=== PATIENT | female | born 1970 | race Caucasian/White ===

== ENCOUNTER 2019-12-01 00:50 | Inpatient (IN) | payer MEDICARE, OTHER ==
[~2019-12-01] VITALS: Ht 160 cm; Wt 103.0 kg
[~2019-12-01 00:50] MED LIST: ACETAMINOPHEN 325 MG TABLET PO PRN
--- NOTE | 2019-12-01 01:00 | NUR ---
PT BIBPA SENT BY DR FUNK FROM [facility]. PT COVID (+) PER FACILITY REPORT. TEMP UPON ARRIVAL AT 98.1. PT AAOX4, VSS, RESPIRATIONS EVEN AND UNLABORED ON RA W/ NAD NOTED. PT CONNECTED TO THE MONITOR AND POX
--- NOTE | 2019-12-01 01:15 | NUR ---
XRAY AT BEDSIDE FOR XRAY
--- NOTE | 2019-12-01 01:22 | NUR ---
COVID SWAB SAMPLE COLLECTED AND SENT TO THE LAB.
[2019-12-01 01:28] LABS: BASOPHILS # (AUTO) 0.1 /CMM (0.0-0.2); BASOPHILS % (AUTO) 1.6 % (0.0-2.0); EOSINOPHILS % (AUTO) 4.3 % (0.0-6.0); HEMATOCRIT 36 % (33-45); HEMOGLOBIN 11.7 g/dL (11.5-14.8); LYMPHOCYTES # (AUTO) 2.1 /CMM (0.8-4.8); LYMPHOCYTES % (AUTO) 25.5 % (20.0-44.0); MEAN CORPUSCULAR HGB CONC 33 g/dl (31.0-36.0); MEAN CORPUSCULAR VOLUME 90 fL (82-100); MONOCYTES # (AUTO) 0.8 /CMM (0.1-1.30); MONOCYTES % (AUTO) 9.4 % (2.0-12.0); NEUTROPHILS # (AUTO) 4.8 /CMM (1.8-8.9); NEUTROPHILS % (AUTO) 59.2 % (43.0-81.0); PLATELET COUNT (AUTO) 304 /CMM (150-450); RED BLOOD CELL COUNT(AUTO) 3.96 MIL/uL (4.0-5.2); WHITE BLOOD COUNT (AUTO) 8.2 K/uL (4.3-11.0)
[2019-12-01 01:41] LABS: C-REACTIVE PROTEIN 0.4 mg/dL (0.0-0.9)
[2019-12-01 01:42] LABS: ALBUMIN 3.4 g/dL (3.4-5.0); BILIRUBIN,TOTAL 0.1 mg/dL (0.2-1.0); CALCIUM, SERUM 9.6 mg/dL (8.5-10.1); POTASSIUM 3.7 mmol/L (3.5-5.1); TOTAL PROTEIN, SERUM 7.6 g/dL (6.4-8.2)
[2019-12-01] MEDS ORDERED: ALBUTEROL SULFATE 8 GM HFA.AER.AD IH PRN (02:00)
[2019-12-01] MEDS ORDERED: DIVA500T4 PO (02:15)
[2019-12-01] MEDS ORDERED: QUET400T PO (02:15)
[2019-12-01] MEDS ORDERED: GLIP10TA11 PO (02:15)
[2019-12-01] MEDS ORDERED: LITH600C PO (02:15)
[2019-12-01] MEDS ORDERED: PIOG30TA10 PO (02:15)
[2019-12-01] MEDS ORDERED: METF-441 PO (02:15)
[2019-12-01] MEDS ORDERED: PALI234D IM (02:15)
[2019-12-01] MEDS ORDERED: CLON1TAB12 PO (02:15)
--- NOTE | 2019-12-01 02:40 | NUR ---
FIRST ASSIST NOTES Received patient from ER via rney accompanied by 2 ER staff. Admitted to Tele 206- due to COVID19 under the service of JUVENILE DETENTION OFFICER Leana Gurrola. Transferred to bed comfortably. Admission routine done. Initial skin assessment done: noted blanchable redness on sacrum - educated patient on the importance of turning and repositioning; pt repositions self independently, verbalized understanding; BLE swelling +2 with mild redness, temperature equal to other parts of the body, per patient she has DVT. Admission orders noted and carried out. Kept pt on bed clean, dry and comfortable. Kept BLE elevated with pillow. On RA, SpO2 100%, no SOB/respiratory distress noted. Afebrile. NSR on monitor. On fall and aspiration precautions. Will continue to monitor accordingly.
[2019-12-01 02:57] VITALS: BP 114/80
[2019-12-01] MEDS ORDERED: ONDANSETRON HCL/PF 4 MG/2 ML VIAL IVP PRN (03:00)
[2019-12-01] MEDS ORDERED: ACETAMINOPHEN 650 MG/SUPP.RECT RC PRN (03:00)
[2019-12-01 03:06] VITALS: BP 114/80
--- NOTE | 2019-12-01 06:13 | NUR ---
RN NOTES Pt asleep on bed. On RA, no respiratory distress noted. Afebrile since admitted to the unit. No new complaints made. All nursing needs attended. No due meds at this time. On tele monitor with NSR noted. Kept on bed clean, dry and comfortable. On fall and aspiration precautions. Endorsed. Addendum: 12/01/19 at 0709 by TAYLOR VEGAS RN RN CLOSING NOTES Pt noted NSR with 1st degree AV block.
--- NOTE | 2019-12-01 07:30 | NUR ---
SUPERVISOR DENTAL LABORATORY NOTES RECEIVED PATIENT IN BED ALERT AND AWAKE ORIENTED X3 WATCHING TV. HOB ELEVATED. NO COUGH, SOB NOTED. ON ROOM AIR WITH SPO2 OF 100%. AMBULATORY WITH STEADY GAIT. ON TELE MONITORING SR: 84. RIGHT AC # 18 SL INTACT AND PATENT. BED IN LOWEST POSITION ,LOCKED. BED ALARM ON. CALL LIGHT WITHIN REACH.
[2019-12-01 08:00] VITALS: BP 127/77
[2019-12-01] MEDS ORDERED: ACET-868 PO (09:06)
[2019-12-01] MEDS ORDERED: BISA10SU11 RC (09:06)
[2019-12-01] MEDS ORDERED: NA P133E RC (09:06)
[2019-12-01] MEDS ORDERED: MAGN400O6 PO (09:06)
[2019-12-01] MEDS ORDERED: BENZ1TAB7 PO (09:06)
[2019-12-01] MEDS: DEXAMETHASONE SOD PHOSPHATE 10 MG/ML VIAL IV SCH (09:47)
[2019-12-01] MEDS: ENOXAPARIN SODIUM 40 MG/0.4 ML DISP.SYRIN SQ SCH (09:51)
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
--- NOTE | 2019-12-01 11:15 | NUR ---
CITRIX ARCHITECT NOTES UPON CHECKING ON PATIENT PRIOR TO ENTERING THE ROOM, NOTED PATIENT WITH MOOD CHANGE, STATING THAT WE HAD GIVEN HER THE DISEASE. WHEN ASKED ABOUT THE DISEASE, PATIENT UNABLE TO ANSWER, THEN TURNED HER BACK AND WENT TO SLEEP.
[2019-12-01 12:00] VITALS: BP 137/86
--- NOTE | 2019-12-01 15:00 | NUR ---
INSEAM TRIMMING MACHINE OPERATOR NOTES OBSERVED PATIENT PACING IN ROOM, THEN PATIENT STOPPED IN FRONT OF THE BED AND STATED THAT THE BLINKING LIGHT OF THE BED IS SENDING HER MESSAGES AND TALKING TO PATIENT BUT PATIENT DOES NOT WANT TO TALK TO THE BED. ATTEMPTED TO REDIRECT PATIENT AND INFORMED PATIENT THAT THE BED IS NOT TALKING AND IT'S JUST A BLINKING LIGHT WITH NO MESSAGES. PATIENT CONTINUED TO TALK TO THE BED.
--- NOTE | 2019-12-01 15:45 | NUR ---
AIRCRAFT ENGINE SPECIALIST NOTES PATIENT SITTING IN CHAIR, ASKED PATIENT IF SHE NEEDED ANYTHING, PATIENT REPLIED NO WITH A SMILE AND STATED SHE IS DOING FINE.
[2019-12-01 16:00] VITALS: BP 136/84
--- NOTE | 2019-12-01 18:45 | NUR ---
VISCERA WASHER NOTES PATIENT SITTING AT EDGE OF BED WATCHING TV. DENIES ANY C/O PAIN NOR DISCOMFORT. NO S/S OF RESPIRATORY DISTRESS. RIGHT AC # 18 SL INTACT AND PATENT. BED IN LOWEST POSITION ,LOCKED. BED ALARM ON. CALL LIGHT WITHIN REACH. IN NO APPARENT DISTRESS.
--- NOTE | 2019-12-01 23:00 | NUR ---
ELECTRONIC GLUER NOTES PATIENT STILL AWAKE WATCHING TV.
[2019-12-01 23:26] VITALS: BP 125/77
[2019-12-02 01:17] VITALS: BP 151/84
[2019-12-02 05:16] VITALS: BP 139/86
--- NOTE | 2019-12-02 07:27 | NUR ---
PRICING LEAD NOTES PATIENT RESTING COMFORTABLY IN BED. HOB ELEVATED. NO S/S OF RESPIRATORY DISTRESS. DENIES ANY C/O PAIN NOR DISCOMFORT. RIGHT AC # 18 SL INTACT AND PATENT. BED IN LOWEST POSITION, LOCKED. BED ALARM ON. CALL LIGHT WITHIN REACH. IN NO APPARENT DISTRESS.
--- NOTE | 2019-12-02 07:40 | NUR ---
RN NOTES RECEIVED PATIENT RESTING COMFORTABLY IN BED. HOB ELEVATED. NO S/S OF DISTRESS NOTED AT THIS TIME.RIGHT AC # 18 SL INTACT AND PATENT. SAFETY MEASURES IN PLACE, BED IN LOWEST POSITION, LOCKED. BED ALARM ON. CALL LIGHT WITHIN REACH. WILL CONTINUE TO MONITOR.
[2019-12-02 08:07] VITALS: BP 139/85
[2019-12-02 08:16] LABS: BASOPHILS % (AUTO) 0.2 % (0.0-2.0); EOSINOPHILS % (AUTO) 0.8 % (0.0-6.0); HEMATOCRIT 37 % (33-45); HEMOGLOBIN 11.9 g/dL (11.5-14.8); LYMPHOCYTES # (AUTO) 2.4 /CMM (0.8-4.8); LYMPHOCYTES % (AUTO) 26.1 % (20.0-44.0); MEAN CORPUSCULAR HGB CONC 33 g/dl (31.0-36.0); MEAN CORPUSCULAR VOLUME 89 fL (82-100); MONOCYTES # (AUTO) 0.8 /CMM (0.1-1.30); MONOCYTES % (AUTO) 9.1 % (2.0-12.0); NEUTROPHILS # (AUTO) 5.8 /CMM (1.8-8.9); NEUTROPHILS % (AUTO) 63.8 % (43.0-81.0); PLATELET COUNT (AUTO) 291 /CMM (150-450); RED BLOOD CELL COUNT(AUTO) 4.09 MIL/uL (4.0-5.2); WHITE BLOOD COUNT (AUTO) 9.2 K/uL (4.3-11.0)
[2019-12-02] MEDS: DEXAMETHASONE SOD PHOSPHATE 10 MG/ML VIAL IV SCH (08:18)
[2019-12-02] MEDS: ENOXAPARIN SODIUM 40 MG/0.4 ML DISP.SYRIN SQ SCH (08:19)
[2019-12-02 08:43] LABS: ALBUMIN 3.6 g/dL (3.4-5.0); BILIRUBIN,TOTAL 0.1 mg/dL (0.2-1.0); CALCIUM, SERUM 9.7 mg/dL (8.5-10.1); CREATININE 0.9 mg/dL (0.6-1.3); POTASSIUM 3.9 mmol/L (3.5-5.1); TOTAL PROTEIN, SERUM 8.3 g/dL (6.4-8.2)
[2019-12-02 12:33] VITALS: BP 129/74
[2019-12-02] MEDS ORDERED: ACETAMINOPHEN 325 MG TABLET PO PRN (14:00)
[2019-12-02] MEDS ORDERED: MAGNESIUM HYDROXIDE 30 ML UDC PO PRN (14:00)
[2019-12-02] MEDS ORDERED: NA PHOS,M-B/NA PHOS,DI-BA 1 EA ENEMA RC PRN (14:00)
[2019-12-02] MEDS ORDERED: BISACODYL SUPP (10 MG) 10 MG/SUPP.RECT SUPP.RECT RC PRN (14:00)
[2019-12-02 16:13] VITALS: BP 151/88
[2019-12-02] MEDS: METFORMIN 850 MG TABLET PO SCH ×2 (16:17→17:00)
[2019-12-02] MEDS: clonazePAM 1 MG TABLET PO SCH ×2 (16:17→17:00)
[2019-12-02] MEDS: BENZTROPINE MESYLATE (1 MG) 1 MG TABLET PO SCH ×2 (16:17→17:00)
[2019-12-02] MEDS: QUETIAPINE FUMARATE 100 MG TABLET PO SCH ×2 (16:17→17:00)
[2019-12-02] MEDS: LITHIUM CARBONATE (300 MG CAP) 300 MG CAPSULE PO SCH (17:00)
--- NOTE | 2019-12-02 17:50 | NUR ---
RN NOTES PATIENT CHANGED HER MIND END SPIT OUT ALL MEDICATION, PER PATIENT" I'M OKAY NOW, I DON'T NEED MEDICATION AND I WANT TO GO BACK TO THE FACILITY" EXPLAINED THE BENEFITS AND RISKS OF MEDICATION 3X. PATIENT STILL REFUSED AND STARTED SHOUTING. WILL CONTINUE TO MONITOR.
--- NOTE | 2019-12-02 18:28 | NUR ---
RN NOTES PATIENT RESTING COMFORTABLY IN BED. HOB ELEVATED. NO S/S OF DISTRESS NOTED THROUGHOUT THE SHIFT.RIGHT AC # 18 SL INTACT AND PATENT. SAFETY MEASURES IN PLACE, BED IN LOWEST POSITION, LOCKED. BED ALARM ON. CALL LIGHT WITHIN REACH. WILL ENDORSE TO ENGINEERING DESIGN MANAGER NURSE FOR [facility].
--- NOTE | 2019-12-02 19:00 | NUR ---
RN opening notes Received Pt from morning nurse. Pt is resting in bed comfortable. Pt is alert and orientedX2-3. Respiration is normal. No SOB. No S/S of distress noted. IV sites at RAC# 18 is clean, intact, patent and SL. Tele monitor showed SR Hr at 90 bpm. Isolation precautions is maintained. Safety precautions is maintained. Bed at low position, brakes locked, side rails upX3 and call light is with reach. Will continue to monitor.
[2019-12-02 20:00] VITALS: BP 110/69
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
--- NOTE | 2019-12-02 21:20 | NUR ---
airport shuttle driver notes Pt is resting in bed comfortably and calm. No SOB. No S/S of distress noted. Will continue to monitor.
[2019-12-02] MEDS: DIVALPROEX SODIUM 500 MG TABLET.DR PO SCH (21:39)
--- NOTE | 2019-12-02 21:39 | NUR ---
medical imaging director notes Pt refused depakote 500mg/2 tabs/po. Explained risks and benefits. Pt keep refusing. Will continue to monitor.
[2019-12-03] VITALS (7 sets, daily range): BP systolic 97–165; BP diastolic 61–96
--- NOTE | 2019-12-03 06:39 | NUR ---
RN closing notes Pt is resting in bed comfortably. Pt is alert and orientedX2-3. Respiration is normal. No SOB. No S/S of distress noted. VS is stable. IV sites at RAC# 18 is clean, intact, patent and SL. Tele monitor showed SR Hr at 93 bpm. Isolation precautions is maintained. Kept Pt clean, dry and comfortable. All needs met and attended. Safety precautions is maintained. Bed at low position, brakes locked, side rails upX3 and call light is with reach. Will endorse to morning nurse for [facility].
[2019-12-03 07:18] LABS: BASOPHILS % (AUTO) 0.4 % (0.0-2.0); EOSINOPHILS % (AUTO) 0.6 % (0.0-6.0); HEMATOCRIT 32 % (33-45); HEMOGLOBIN 10.6 g/dL (11.5-14.8); LYMPHOCYTES # (AUTO) 1.8 /CMM (0.8-4.8); LYMPHOCYTES % (AUTO) 27.3 % (20.0-44.0); MEAN CORPUSCULAR HGB CONC 33 g/dl (31.0-36.0); MEAN CORPUSCULAR VOLUME 89 fL (82-100); MONOCYTES # (AUTO) 0.8 /CMM (0.1-1.30); MONOCYTES % (AUTO) 11.8 % (2.0-12.0); NEUTROPHILS # (AUTO) 4.1 /CMM (1.8-8.9); NEUTROPHILS % (AUTO) 59.9 % (43.0-81.0); PLATELET COUNT (AUTO) 235 /CMM (150-450); RED BLOOD CELL COUNT(AUTO) 3.61 MIL/uL (4.0-5.2); WHITE BLOOD COUNT (AUTO) 6.8 K/uL (4.3-11.0)
--- NOTE | 2019-12-03 07:30 | NUR ---
RN OPENING NOTES PATIENT IN BED AOX3. RESTING COMFORTABLY IN BED. HOB ELEVATED. NO CARDIAC OR RESP DISTRESS NOTED. NO SOB NOTED. SATURATING WELL ON ROOMN AIR. IV ACCESS NOTED ON RIGHT AC # 18 SL INTACT AND PATENT. SAFETY MEASURES IN PLACE, BED IN LOWEST POSITION, LOCKED. BED ALARM ON. CALL LIGHT WITHIN REACH. WILL CONT TO MONITOR.
[2019-12-03 07:44] LABS: CALCIUM, SERUM 8.7 mg/dL (8.5-10.1); CREATININE 0.9 mg/dL (0.6-1.3); POTASSIUM 3.6 mmol/L (3.5-5.1)
[2019-12-03] MEDS: BENZTROPINE MESYLATE (1 MG) 1 MG TABLET PO SCH ×2 (08:23→17:00)
[2019-12-03] MEDS: PIOGLITAZONE HCL 15 MG TABLET PO SCH (08:23)
[2019-12-03] MEDS: QUETIAPINE FUMARATE 100 MG TABLET PO SCH ×2 (08:23→17:38)
[2019-12-03] MEDS: clonazePAM 1 MG TABLET PO SCH ×2 (08:23→17:38)
[2019-12-03] MEDS: DEXAMETHASONE SOD PHOSPHATE 10 MG/ML VIAL IV SCH (08:23)
[2019-12-03] MEDS: LITHIUM CARBONATE (300 MG CAP) 300 MG CAPSULE PO SCH ×2 (08:24→17:38)
[2019-12-03] MEDS: METFORMIN 850 MG TABLET PO SCH ×3 (08:24→17:00)
[2019-12-03] MEDS: ENOXAPARIN SODIUM 40 MG/0.4 ML DISP.SYRIN SQ SCH (08:25)
--- NOTE | 2019-12-03 08:51 | NUR ---
REFUSED MEDS PT REFUSED TO TAKE SOME OF HER MORNING MEDS. EXPLAINED RISKS AND BENEFITS OF MEDS AND BEING COMPLIANT WITH MEDICATION REGIMEN BUT STILL REFUSED.
--- NOTE | 2019-12-03 09:13 | NUR ---
report given to sameer monroy for continuity of care
--- NOTE | 2019-12-03 09:30 | NUR ---
manager telecom note all needs attended received patient in bed awake alert , on tele monitor se hr 73, able to feed self rt fa hl intact ,will cont to monitor
--- NOTE | 2019-12-03 10:17 | NUR ---
telephone maintainer note dr olvera at bedside, aware that patinr refused to take Meds, will cont to monitor
--- NOTE | 2019-12-03 12:22 | NUR ---
telex operator ote having lunch able to eat self, refusing to have Glucophage ,explaining importance and action of mediation, still refused ,will cont to encourage to take ,will f\u
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
--- NOTE | 2019-12-03 15:41 | NUR ---
Core Fitter spoke to JAYLEN Bond at [facility] . Per Ronda, patient has been residing at their facility since September 29. Per Ronda, patient is diagnosed with Schizoeffect disorder and bipolar disorder. Per Ronda, patient accuses people around her of stealing personal items and patient likes to invade personal space. Per Ronda, patient is being followed by Dr. Hurley . JAYLEN to provide this information to patient's RN. JAYLEN to remain available for all needs regarding this patient.
--- NOTE | 2019-12-03 18:41 | NUR ---
tle rn note having dinner, all needs attended ,not in distress will,cont to monitor closely
--- NOTE | 2019-12-03 19:45 | NUR ---
RN OPENING NOTES, PATIENT IN BED AOX3, ON ROOM AIR, BREATHING EVEN AND UNLABORED, NO S/S OF ANY SOB/ACUTE DISTRESS OR DISCOMFORT, DENIES PAIN, NSR IN TELE MONITOR WITH HR IN 60S AT THIS TIME, IV ACCESS ON RIGHT AC # 18 SL PATENT AND INTACT, SAFETY MEASURES IN PLACE, BED IN LOWEST POSITION, BED LOCKED AND LOWEST POSITION, CALL LIGHT WITHIN REACH,WILL CONT TO MONITOR CLOSELY.
[2019-12-03] MEDS: DIVALPROEX SODIUM 500 MG TABLET.DR PO SCH (21:54)
[2019-12-04] VITALS: BP 123/86
[2019-12-04 04:00] VITALS: BP 132/89
--- NOTE | 2019-12-04 06:48 | NUR ---
RN CLOSING NOTES, PATIENT SITTING ON THE CHAIR AT THIS TIME, ON ROOM AIR, BREATHING EVEN AND UNLABORED, NO S/S OF ANY SOB/ACUTE DISTRESS OR DISCOMFORT, DENIES PAIN, CONTINUE NSR IN TELE MONITOR, IV ACCESS ON RIGHT AC # 18 SL PATENT AND INTACT, NO SIGNIFICANT CHANGE IN CONDITION THROUGHOUT THE NIGHT, SAFETY MEASURES IN PLACE, BED LOCKED AND LOWEST POSITION, CALL LIGHT WITHIN REACH, WILL CONT TO MONITOR CLOSELY.
[2019-12-04 06:56] LABS: BASOPHILS % (AUTO) 0.3 % (0.0-2.0); EOSINOPHILS % (AUTO) 0.9 % (0.0-6.0); HEMATOCRIT 31 % (33-45); HEMOGLOBIN 10.4 g/dL (11.5-14.8); LYMPHOCYTES # (AUTO) 2.4 /CMM (0.8-4.8); MEAN CORPUSCULAR HGB CONC 33 g/dl (31.0-36.0); MEAN CORPUSCULAR VOLUME 90 fL (82-100); MONOCYTES # (AUTO) 0.6 /CMM (0.1-1.30); MONOCYTES % (AUTO) 11.1 % (2.0-12.0); NEUTROPHILS # (AUTO) 2.5 /CMM (1.8-8.9); NEUTROPHILS % (AUTO) 44.7 % (43.0-81.0); PLATELET COUNT (AUTO) 215 /CMM (150-450); RED BLOOD CELL COUNT(AUTO) 3.49 MIL/uL (4.0-5.2); WHITE BLOOD COUNT (AUTO) 5.7 K/uL (4.3-11.0)
[2019-12-04 07:54] LABS: CALCIUM, SERUM 8.6 mg/dL (8.5-10.1); CREATININE 0.8 mg/dL (0.6-1.3); POTASSIUM 3.4 mmol/L (3.5-5.1)
[2019-12-04 08:00] VITALS: BP_SYST 131; BP_SYST 132; BP_DIAS 86
--- NOTE | 2019-12-04 08:00 | NUR ---
RN RECEIVED PT IN BED AOX1, IV ACCESS NOT PATENT LEAKING REMOVED AND WILL START ANOTHER ONE SAFETY MEASURES TAKEN CALL LIGHT W/ IN REACH WILL CONT TO MONITOR.
[2019-12-04] MEDS: PIOGLITAZONE HCL 15 MG TABLET PO SCH (08:21)
[2019-12-04] MEDS: DEXAMETHASONE SOD PHOSPHATE 10 MG/ML VIAL IV SCH (08:21)
[2019-12-04] MEDS: QUETIAPINE FUMARATE 100 MG TABLET PO SCH (08:21)
[2019-12-04] MEDS: clonazePAM 1 MG TABLET PO SCH (08:22)
[2019-12-04] MEDS: METFORMIN 850 MG TABLET PO SCH ×2 (08:22→12:30)
[2019-12-04] MEDS: BENZTROPINE MESYLATE (1 MG) 1 MG TABLET PO SCH (08:23)
[2019-12-04] MEDS: LITHIUM CARBONATE (300 MG CAP) 300 MG CAPSULE PO SCH (08:24)
[2019-12-04] MEDS: ENOXAPARIN SODIUM 40 MG/0.4 ML DISP.SYRIN SQ SCH (08:30)
[2019-12-04] MEDS ORDERED: POTASSIUM CHLORIDE 20 MEQ TAB.PRT.SR PO ONE (09:30)
[2019-12-04] MEDS ORDERED: DEXA10VI2 IV (09:47)
[2019-12-04 12:00] VITALS: BP 137/80
[2019-12-04 16:00] VITALS: BP 121/80
--- NOTE | 2019-12-04 16:13 | NUR ---
agricultural sales representative pt is being dc to assisted living where she came from report given to NANNY/HOUSEHOLD MANAGER, pt aox4 vs stable no distress noted during recovery pt left at 1605 via ambulance emt, dc instructions given and tought
== END 2019-12-04 16:05 | DRG 178 ==
LOC: ER 00:50 → TELE2 01:59
PROVIDERS: ADMIT Internal Medicine; ATTEND Family Medicine
DX: U07.1 COVID-19 (principal); Z68.41 Body mass index [BMI] 40.0-44.9, adult; I10 Essential (primary) hypertension; E03.9 Hypothyroidism, unspecified; F25.9 Schizoaffective disorder, unspecified; Z79.84 Long term (current) use of oral hypoglycemic drugs; Z79.899 Other long term (current) drug therapy; E66.01 Morbid (severe) obesity due to excess calories; F41.9 Anxiety disorder, unspecified; F32.9 Major depressive disorder, single episode, unspecified; E11.65 Type 2 diabetes mellitus with hyperglycemia; Z88.0 Allergy status to penicillin; I89.0 Lymphedema, not elsewhere classified; E87.6 Hypokalemia
CPT/HCPCS: 36415; 71045-TC; 80048-TC; 80053-TC; 82728-TC; 83605-TC; 83615-TC; 85025-TC; 85385-TC; 86140-TC; 87081-TC; G0378; J1100; J1650; U0003

== ENCOUNTER 2020-07-17 12:35 | Inpatient (IN) | payer MEDICARE, OTHER ==
[~2020-07-17] VITALS: Ht 167.6 cm; Wt 115.7 kg
[2020-07-17] MEDS: BENZTROPINE MESYLATE (1 MG) 1 MG TABLET PO SCH (01:00)
[2020-07-17] MEDS: clonazePAM 1 MG TABLET PO SCH (01:00)
[~2020-07-17 12:35] MED LIST changes: +ACET-868 PO; -ACETAMINOPHEN 325 MG TABLET PO PRN; +BENZ1TAB7 PO; +BISA10SU11 RC; +CLON1TAB12 PO; +DEXA10VI2 IV; +DIVA500T4 PO; +GLIP10TA11 PO; +LITH600C PO; +MAGN400O6 PO; +METF-441 PO; +NA P133E RC; +PALI234D IM; +PIOG30TA10 PO; +QUET400T PO
--- NOTE | 2020-07-17 13:08 | NUR ---
NIKOLAS PA, POSSIBLE SYNCOPE, FOUND PASS OUT IN DINING TABLE. SENT BY MD FUNK FOR FUTHER EVAL. PT AAOX3, VSS. RR EVEN & UNLABORED. DENIES CP, SOB, DIZZINESS, N/V, WEAKNESS AT THIS TIME. PT SEEN & EVAL'D BY DR. BESS. PLACED ON GROCERY BUYER, SR. WILL CONT TO MONITOR.
[2020-07-17 13:10] LABS: BASOPHILS # (AUTO) 0.1 /CMM (0.0-0.2); BASOPHILS % (AUTO) 0.6 % (0.0-2.0); EOSINOPHILS % (AUTO) 2.2 % (0.0-6.0); HEMATOCRIT 35 % (33-45); HEMOGLOBIN 11.7 g/dL (11.5-14.8); LYMPHOCYTES # (AUTO) 2.6 /CMM (0.8-4.8); LYMPHOCYTES % (AUTO) 22.7 % (20.0-44.0); MEAN CORPUSCULAR HGB CONC 33 g/dl (31.0-36.0); MEAN CORPUSCULAR VOLUME 91 fL (82-100); MONOCYTES # (AUTO) 0.6 /CMM (0.1-1.30); MONOCYTES % (AUTO) 4.9 % (2.0-12.0); NEUTROPHILS % (AUTO) 69.6 % (43.0-81.0); PLATELET COUNT (AUTO) 306 /CMM (150-450); RED BLOOD CELL COUNT(AUTO) 3.84 MIL/uL (4.0-5.2); WHITE BLOOD COUNT (AUTO) 11.5 K/uL (4.3-11.0)
[2020-07-17 13:19] LABS: CARBON DIOXIDE 28 mmol/L (21-32); CHLORIDE 105 mmol/L (98-107); GLUCOSE 143 mg/dL (74-106); POTASSIUM 3.8 mmol/L (3.5-5.1); SODIUM SERUM 143 mmol/L (136-145); UREA NITROGEN, BLOOD 9 mg/dL (7-18)
[2020-07-17 13:36] LABS: ALANINE AMINOTRANSFERASE 22 U/L (12-78); ALBUMIN 3.8 g/dL (3.4-5.0); ALKALINE PHOSPHATASE 80 U/L (46-116); ASPARTATE AMINOTRANSFERASE 10 U/L (15-37); BILIRUBIN,TOTAL 0.2 mg/dL (0.2-1.0)
[2020-07-17] MEDS ORDERED: FURO-145 PO (13:49)
--- NOTE | 2020-07-17 15:18 | NUR ---
PT ASLEEP, EASILY AWAKEN BY VERBAL STIMULI. DENIES CP, SOB, DIZZINESS, N/V AT THIS TIME. WILL CONT TO MONITOR.
[2020-07-17] MEDS ORDERED: TEMAZEPAM 15 MG CAPSULE PO PRN (16:30)
[2020-07-17] MEDS ORDERED: MAGNESIUM HYDROXIDE 30 ML UDC PO PRN ×2 (16:30)
[2020-07-17] MEDS ORDERED: PALIPERIDONE 156 MG XX SCH (16:30)
[2020-07-17] MEDS ORDERED: Z GUARD REMEDY 2 OZ OINT TP PRN (16:30)
[2020-07-17] MEDS ORDERED: BISACODYL SUPP (10 MG) 10 MG/SUPP.RECT SUPP.RECT RC PRN (16:30)
[2020-07-17] MEDS ORDERED: MAG HYDROX/AL HYDROX/SIMETH 30 ML UDC PO PRN (16:30)
[2020-07-17] MEDS ORDERED: MORPHINE SULFATE INJ 2 MG/ML DISP.SYRIN IV PRN (16:30)
[2020-07-17] MEDS ORDERED: ONDANSETRON HCL/PF 4 MG/2 ML VIAL IVP PRN (16:30)
[2020-07-17] MEDS ORDERED: NA PHOS,M-B/NA PHOS,DI-BA 1 EA ENEMA RC PRN (16:30)
[2020-07-17] MEDS ORDERED: ACETAMINOPHEN 325 MG TABLET PO PRN (16:30)
[2020-07-17] MEDS ORDERED: IV NS 0.9% 1,000 ML IV PRN (16:30)
[2020-07-17] MEDS ORDERED: HYDROCODONE/APAP 5/325MG TABLET PO PRN (16:30)
--- NOTE | 2020-07-17 17:46 | NUR ---
Patient is resting comfortably in bed with eyes closed. Easily aroused. VSS
--- NOTE | 2020-07-17 20:31 | NUR ---
PT AAOX4, VSS. RR EVEN & UNLABORED. DENIES CP, SOB, DIZZINESS, N/V AT THIS TIME. PT EATING MEAL, JESUS WELL. NAD NOTED AT THIS TIME. WILL CONT TO MONITOR.
--- NOTE | 2020-07-17 22:07 | NUR ---
PT STABLE, RR EVEN & UNLABORED. ON TELE, SR. NAD NOTED AT THIS TIME. WILL CONT TO MONITOR
--- NOTE | 2020-07-17 23:18 | NUR ---
BED ASSIGNMENT 119-1
--- NOTE | 2020-07-17 23:40 | NUR ---
RN NOTES RECEIVED ER ADMISSION REPORT FROM [facility] ED[facility]. ALL PERTINENT ADMISSION INFO REGARDING PT NOTED. WILL WAIT FOR PT TO BE TRANSFERRED TO UNIT AND ADDRESS NEEDS ACCORDINGLY. ENFORCEMENT MANAGER MADE AWARE.
--- NOTE | 2020-07-17 23:40 | NUR ---
REPORT GIVEN TO LUIS EDUARDO QUINN FOR [facility].
--- NOTE | 2020-07-18 00:10 | NUR ---
RN NOTES RECEIVED PT FROM ER VIA GURNEY ACCOMPANIED BY 2ER STAFF AND TRANSFERRED TO BED VIA 2 PERSON ASSIST. PT IS ALERT AND ORIENTED X3-4. PT ON ROOM AIR WITH RESPIRATIONS EVEN AND UNLABORED. COMPREHENSIVE PHYSICAL ASSESSMENT AND PATIENT CARE DONE. CALL LIGHT WITHIN REACH, SAFETY MEASURES AND ISOLATION PRECAUTION IN PLACE, WILL CONTINUE MONITOR AND ASSESS THROUGHOUT THE SHIFT. WILL CARRY OUT MD ORDERS ACCORDINGLY. GOVERNMENT INSTRUCTOR MADE AWARE.
[2020-07-18 00:30] VITALS: BP 145/90
--- NOTE | 2020-07-18 00:50 | NUR ---
RN NOTES FACILITATED INSERTION OF IV LINE @ R HAND #22; SECURED, INTACT AND FLUSHING WELL. SHEET METAL ERECTOR MADE AWARE. WILL CONTINUE TO MONITOR AND ASSESS THROUGHOUT THE SHIFT
[2020-07-18] MEDS: ENOXAPARIN SODIUM 40 MG/0.4 ML DISP.SYRIN SQ SCH ×2 (01:00→16:24)
--- NOTE | 2020-07-18 01:00 | NUR ---
RN NOTES MEDICATIONS : LOVENOX 40MG/0.4ML DUE @1630, COGENTIN 1MG DUE @1700 AND KLONOPIN 1MG DUE @1700; NOT GIVEN PER ER. TRIED TO COVER DURING ADMISSION BUT PT REFUSED. EXPLAINED RISK AND BENEFITS BUT PT REFUSED. DIRECTOR OF RETAIL MARKETING MADE AWARE. WILL CONTINUE TO MONITOR AND ASSESS.
[2020-07-18 04:00] VITALS: BP 147/81
--- NOTE | 2020-07-18 04:00 | NUR ---
RN NOTES PATIENT REMAINS IN NO ACUTE RESPIRATORY DISTRESS AT THIS TIME, NO CHANGES TO CONDITION/STATUS. AM PATIENT CARE DONE. DRUG ABUSE COUNSELOR WELL AWARE. WILL CONTINUE TO MONITOR AND REASSESS FOR ANY CHANGES THROUGHOUT THE SHIFT
--- NOTE | 2020-07-18 05:55 | NUR ---
RN NOTES LAB COORDINATED THAT PT REFUSED BLOOD DRAW FOR AM LABS; SPOKE WITH PT AND EXPLAINED RISK AND BENEFITS BUT PT STILL REFUSED. COLLECTIVE BARGAINING SPECIALIST MADE AWARE.
--- NOTE | 2020-07-18 06:55 | NUR ---
RN CLOSING NOTE: PATIENT REMAINS IN ROOM IN NO SIGNS OF RESPIRATORY DISTRESS; STILL ON ROOM AIR TOLERATING WELL WITH 02 SAT >95%. SAFETY MEASURES IMPLEMENTED, BED IN LOWEST POSITION, LOCKED, SIDE RAILS UP, CALL LIGHT WITHIN REACH. ALL NEEDS AND ORDERS ADDRESSED DURING THE SHIFT. IV ACCESS MAINTAINED INTACT, SECURED AND FLUSHING WELL. ALL DUE MEDS GIVEN ORDERED & SCHEDULED ; PATIENT TOLERATED WELL. PATIENT KEPT CLEAN AND COMFORTABLE WITHIN THE SHIFT. PATIENT ENDORSED TO INCOMING SHIFT RN WITH STABLE VITAL SIGN AND FOR CONTINUITY OF CARE.
[2020-07-18] MEDS ORDERED: PANTOPRAZOLE 40 MG TABLET.DR PO SCH (07:30)
--- NOTE | 2020-07-18 08:00 | NUR ---
RN Note: PT RECEIVED ALERT AWAKE ORIENTED X3. ON ROOM AIR, NO BREATHING DISTRESS NOTED. DENIES PAIN & DISCOMFORT. SAFETY MEASURES OBSERVED. ENCOURAGE PT TO USE CALL LIGHT FOR ASSISTANCE. CONTINUE TO MONITOR.
[2020-07-18] MEDS: LITHIUM CARBONATE (300 MG CAP) 300 MG CAPSULE PO SCH ×2 (09:00→17:00)
[2020-07-18] MEDS: BENZTROPINE MESYLATE (1 MG) 1 MG TABLET PO SCH ×2 (09:00→17:00)
[2020-07-18] MEDS: clonazePAM 1 MG TABLET PO SCH ×2 (09:00→17:00)
[2020-07-18] MEDS: QUETIAPINE FUMARATE 100 MG TABLET PO SCH ×2 (09:00→17:00)
[2020-07-18] MEDS ORDERED: DIVALPROEX SODIUM 250 MG TABLET.DR PO SCH (10:35)
[2020-07-18 10:45] LABS: BASOPHILS % (AUTO) 0.4 % (0.0-2.0); EOSINOPHILS % (AUTO) 1.4 % (0.0-6.0); HEMATOCRIT 35 % (33-45); HEMOGLOBIN 11.3 g/dL (11.5-14.8); LYMPHOCYTES # (AUTO) 2.6 /CMM (0.8-4.8); LYMPHOCYTES % (AUTO) 22.7 % (20.0-44.0); MEAN CORPUSCULAR HGB CONC 32 g/dl (31.0-36.0); MEAN CORPUSCULAR VOLUME 93 fL (82-100); MONOCYTES # (AUTO) 0.7 /CMM (0.1-1.30); MONOCYTES % (AUTO) 5.9 % (2.0-12.0); NEUTROPHILS % (AUTO) 69.6 % (43.0-81.0); PLATELET COUNT (AUTO) 292 /CMM (150-450); RED BLOOD CELL COUNT(AUTO) 3.74 MIL/uL (4.0-5.2); WHITE BLOOD COUNT (AUTO) 11.4 K/uL (4.3-11.0)
[2020-07-18 10:57] LABS: CALCIUM, SERUM 9.1 mg/dL (8.5-10.1); CREATININE 0.9 mg/dL (0.6-1.3); MAGNESIUM 1.8 mg/dL (1.8-2.4); PHOSPHORUS 2.8 mg/dL (2.5-4.9); POTASSIUM 3.9 mmol/L (3.5-5.1)
--- NOTE | 2020-07-18 11:00 | NUR ---
RN NOTE: PT REFUSED ALL AM MEDS. R/B DISCUSSED WITH PT, VERBALIZED UNDERSTANDING. OFFERED MEDS X 3. STILL STRICTLY REFUSED. DR. KING MADE AWARE. CONTINUE TO MONITOR.
[2020-07-18 11:07] LABS: THYROID STIMULATING HORMONE 1.367 uIU/mL (0.358-3.74)
[2020-07-18 11:21] VITALS: BP 168/94
[2020-07-18 12:00] VITALS: BP 152/88
[2020-07-18 17:59] VITALS: BP 179/94
--- NOTE | 2020-07-18 18:00 | NUR ---
RN NOTE: 1530: PLAN TO D/C TO SNF, REPORT GIVEN TO ALYSIA RN ORACLE OBIEE DEVELOPER AT FACILITY. SON YOLY RAMIREZ NOTIFIED. 1620: SBP > 180, PT C/O SEVERE HEADACHE. STRICTLY REFUSED NORCO & ALL OTHER ROUTINE MEDICATIONS. AGREE FOR MORPHINE IV & ADMINISTERED ORDERED. HEALTH NAVIGATOR AMBULANCE LEFT DUE TO NEED OF BARIATRIC GURNEY NEEDED. CASE MANGER NOTIFIED BY CHARGE NURSE SOON. REASSESSMENT STILL SBP ELEVATED > 190. PT REFUSED TO TAKE ANY OTHER MEDS AT THIS TIME. 1800: SBP STILL ELEVATED > 180, PAIN RELIEVED. DR. KING NOTIFIED. RECEIVED ONE TIME ORDER HYDRALAZINE 50MG PO, ADMINISTERED ORDERED. REASSESSED BP 142/60, HR 87. WILL CONTINUE TO MONITOR.
[2020-07-18] MEDS ORDERED: hydrALAZINE HCL 50 MG TABLET PO SCH (18:30)
[2020-07-18 18:59] VITALS: BP 142/60
--- NOTE | 2020-07-18 19:30 | NUR ---
CHIEF OF PLANNING NOTES PATIENT DISCHARGE GOING TO [facility] WITH STABLE VITAL SIGNS, ALERT ORIENTED X3-4, NO ACUTE DISTRESS NOTED UPON DISCHARGE, BREATHING UNLABORED SATURATING AT 98% ON RA. DISCHARGE INSTRUCTIONS GIVEN INCLUDING HEALTH TEACHING REGARDING CONDITION AND SAFETY MEASURES & PRECAUTIONS AND INFECTION CONTROL AND MEDICATION LIST AND TEACHING. ALL BELONGINGS ACCOUNTED FOR SENT WITH PT. IV ACCESS/LINES REMOVED INTACT, NO REDNESS, NO BLEEDING, NO SWELLING NOTED. PICKED UP VIA AMBULANCE IN A GURNEY ACCOMPANIED BY 3 EMT PERSONNEL IN STABLE CONDITION.OVEN DRIER TENDER MADE AWARE.
== END 2020-07-18 19:31 | DRG 74 ==
LOC: ER 12:39 → TELE1 23:38 → MEDSG1 07-18 08:51
PROVIDERS: ADMIT Nurse Practitioner Acute Care; ATTEND Nurse Practitioner Acute Care
DX: G90.8 Other disorders of autonomic nervous system (principal); Z68.41 Body mass index [BMI] 40.0-44.9, adult; E66.01 Morbid (severe) obesity due to excess calories; E03.9 Hypothyroidism, unspecified; F17.210 Nicotine dependence, cigarettes, uncomplicated; E11.9 Type 2 diabetes mellitus without complications; J44.9 Chronic obstructive pulmonary disease, unspecified; Z79.01 Long term (current) use of anticoagulants; Z88.0 Allergy status to penicillin; I10 Essential (primary) hypertension; Z79.84 Long term (current) use of oral hypoglycemic drugs; F25.0 Schizoaffective disorder, bipolar type; G47.33 Obstructive sleep apnea (adult) (pediatric); Z71.6 Tobacco abuse counseling; Z71.3 Dietary counseling and surveillance; Z20.822 Contact with and (suspected) exposure to COVID-19
CPT/HCPCS: 36415; 71045-TC; 80048-TC; 80061-TC; 80076-TC; 83735-TC; 83880; 84100-TC; 84443-TC; 84484-TC; 84702-TC; 85025-TC; 87081-TC; 93307-TC; 93970-TC; G0378; J2270; J7030; U0003

== ENCOUNTER 2022-03-22 14:40 | Inpatient (IN) | payer MEDICARE, OTHER ==
[~2022-03-22] VITALS: Ht 162.6 cm; Wt 99.8 kg
[~2022-03-22 14:40] MED LIST changes: -DEXA10VI2 IV; +FURO-145 PO
--- NOTE | 2022-03-22 14:55 | NUR ---
NIKOLAS RUIZ FROM [facility] SENT BY PMD FOR BILATERAL EDEMA, MORE SWELLING ON THE R SIDE, INCREASED LASIZ DOSE THIS PAST MONDAY, DENIES PAIN
--- NOTE | 2022-03-22 15:10 | NUR ---
established iv line 20 g right ac
--- NOTE | 2022-03-22 15:20 | NUR ---
covid swab taken
--- NOTE | 2022-03-22 15:20 | NUR ---
blood sample obtained
[2022-03-22 15:31] LABS: BASOPHILS % (AUTO) 0.3 % (0.0-2.0); EOSINOPHILS % (AUTO) 2.2 % (0.0-6.0); HEMATOCRIT 37 % (33-45); LYMPHOCYTES # (AUTO) 3.9 K/uL (0.8-4.8); LYMPHOCYTES % (AUTO) 29.7 % (20.0-44.0); MEAN CORPUSCULAR HGB CONC 32 g/dl (31.0-36.0); MEAN CORPUSCULAR VOLUME 89 fL (82-100); MONOCYTES # (AUTO) 0.8 K/uL (0.1-1.30); MONOCYTES % (AUTO) 6.3 % (2.0-12.0); NEUTROPHILS # (AUTO) 8.1 K/uL (1.8-8.9); NEUTROPHILS % (AUTO) 61.5 % (43.0-81.0); PLATELET COUNT (AUTO) 299 K/uL (150-450); WHITE BLOOD COUNT (AUTO) 13.2 K/uL (4.3-11.0)
[2022-03-22 15:39] LABS: CALCIUM, SERUM 9.4 mg/dL (8.5-10.1); CARBON DIOXIDE 29 mmol/L (21-32); CHLORIDE 103 mmol/L (98-107); GLUCOSE 134 mg/dL (74-106); POTASSIUM 3.9 mmol/L (3.5-5.1); SODIUM SERUM 141 mmol/L (136-145); UREA NITROGEN, BLOOD 8 mg/dL (7-18)
[2022-03-22] MEDS ORDERED: LISI40TA13 PO (15:50)
[2022-03-22] MEDS ORDERED: NITR0.4T48 SL (15:50)
[2022-03-22] MEDS ORDERED: INSU100V28 SQ (15:50)
[2022-03-22] MEDS ORDERED: RISP0.2515 PO (15:50)
[2022-03-22] MEDS ORDERED: MAG30ORA PO (15:50)
[2022-03-22] MEDS ORDERED: MONT10TA22 PO (15:50)
[2022-03-22] MEDS ORDERED: GLUC1KIT IM (15:50)
[2022-03-22 15:51] LABS: ALANINE AMINOTRANSFERASE 17 U/L (12-78); ALBUMIN 3.4 g/dL (3.4-5.0); ALKALINE PHOSPHATASE 76 U/L (46-116); ASPARTATE AMINOTRANSFERASE 11 U/L (15-37); BILIRUBIN,TOTAL 0.1 mg/dL (0.2-1.0); TOTAL PROTEIN, SERUM 7.2 g/dL (6.4-8.2)
--- NOTE | 2022-03-22 16:47 | NUR ---
CALLED NURSING SUP REGARDING PT BED
--- NOTE | 2022-03-22 17:12 | NUR ---
BED GIVEN 306-1
--- NOTE | 2022-03-22 17:50 | NUR ---
report given to ruddy HOFF
--- NOTE | 2022-03-22 18:26 | NUR ---
moved to assigned inpatient room safely
[2022-03-22] MEDS ORDERED: ONDANSETRON HCL/PF 4 MG/2 ML VIAL IVP PRN (18:30)
[2022-03-22] MEDS: METFORMIN 850 MG TABLET PO SCH (18:30)
[2022-03-22] MEDS ORDERED: DEXTROSE 50%-WATER 50 ML DISP.SYRIN IV PRN (18:30)
[2022-03-22] MEDS ORDERED: MAG HYDROX/AL HYDROX/SIMETH 30 ML UDC PO PRN (18:30)
[2022-03-22] MEDS ORDERED: ACETAMINOPHEN 325 MG TABLET PO PRN (18:30)
[2022-03-22] MEDS: BENZTROPINE MESYLATE (1 MG) 1 MG TABLET PO SCH (18:30)
--- NOTE | 2022-03-22 19:14 | NUR ---
MS RN ADMITTING NOTE ADMITTED A 51Y/O FEMALE TO UNIT AT 1622 VIA GURNEY WITH DX OF LOWER EXTREMITY EDEMA. PT IS A/OX4 AND ABLE TO MAKE NEEDS KNOWN. ORIENTED TO ROOM AND STAFF. V/S TAKEN, STABLE AND RECORDED. PT ON ROOM AIR, TOLERATING WELL, WITH NO ACUTE RESPIRATORY DISTRESS OR SOB NOTED. IV ACCESS ON RIGHT AC #20. PATENT WITH SL. LUNGS CLEAR ON AUSCULTATION BILATERALLY, ABDOMEN SOFT, NON TENDER AND NON-DISTENDED WITH BOWEL SOUNDS PRESENT IN ALL 4 QUADRANTS. NO SKIN ISSUES PRESENT. SAFETY MEASURES IN PLACE WITH BED IN LOWEST LOCKED POSITION, SIDE RAILS UP X 2, CALL LIGHT AND TRAY WITHIN REACH. ALL NEEDS MET AT THIS TIME. WILL CONTINUE TO MONITOR.
--- NOTE | 2022-03-22 19:19 | NUR ---
RN CLOSING NOTE PT IN BED AWAKE, A/OX4 AND ABLE TO MAKE NEEDS KNOWN. PT ON ROOM AIR, TOLERATING WELL, WITH NO ACUTE RESPIRATORY DISTRESS OR SOB NOTED. IV ACCESS ON RIGHT AC #20. PATENT WITH SL. NO REPORTS OF CARDIAC PAIN. NO SKIN ISSUES PRESENT. SAFETY MEASURES IN PLACE WITH BED IN LOWEST LOCKED POSITION, SIDE RAILS UP X 2, CALL LIGHT AND TRAY WITHIN REACH. ALL NEEDS MET AT THIS TIME. WILL ENDORSE [facility] TO TARIFF COMPILING CLERK NURSE.
--- NOTE | 2022-03-22 19:26 | NUR ---
RN OPENING NOTE; RECEIVED PT IN BED AWAKE, A/OX4 AND ABLE TO MAKE NEEDS KNOWN.PT ON ROOM AIR, TOLERATING WELL,NO SOB/DISTRESS NOTED,NO COMPLAIN OF PAIN/DISCOMFORT AT THIS TIME,IV ACCESS ON RIGHT AC #20. PATENT AND INTACT SL,SAFETY MEASURES IN PLACE WITH BED IN LOWEST LOCKED POSITION, SIDE RAILS UP X 2, CALL LIGHT AND TRAY WITHIN REACH.WILL CONTINUE TO MONTIOR.
[2022-03-22] MEDS: ENOXAPARIN SODIUM 40 MG/0.4 ML DISP.SYRIN SQ SCH ×2 (19:45→20:00)
--- NOTE | 2022-03-22 20:24 | NUR ---
PATIENT WANTS TO SLEEP AND HAVE THE ECHOCARDIOGRAM EXAM TOMORROW.
[2022-03-22] MEDS: LITHIUM CARBONATE (300 MG CAP) 300 MG CAPSULE PO SCH ×2 (21:00→21:05)
[2022-03-22] MEDS: DIVALPROEX SODIUM 250 MG TABLET.DR PO SCH ×2 (21:00→21:06)
[2022-03-22] MEDS: MONTELUKAST SODIUM (10MG) 10 MG TABLET PO SCH ×2 (21:05→21:41)
[2022-03-22] MEDS: INSULIN REGULAR, HUMAN 100 UNIT/ML 3 ML VIAL SQ PRN (21:30)
[2022-03-22] MEDS: BLOOD SUGAR DIAGNOSTIC 1 EACH STRIP IN SCH (21:32)
--- NOTE | 2022-03-22 21:41 | NUR ---
RN NOTES; PT REFUSED DUE MEDS (1999,2099,2199),CHARGE NURSE AWARE,EXPLAINED THE BENEFITS X3.
[2022-03-23 04:52] VITALS: BP 156/91
--- NOTE | 2022-03-23 06:14 | NUR ---
CUSHION STUFFER CLOSING NOTE; PATIENT AWAKE IN BED, ALERT/ORIENTED X 4, ABLE TO MAKE NEEDS KNOWN. JESUS WELL RM AIR SATTING 99%,NO SIGN SOB/DISTRESS NOTED,BREATHING EVEN AND UNLABORED.NO COMPLAIN OF PAIN/DISCOMFORT DURING SHIFT,DUE MEDS GIVEN ORDER,ALL NEEDS ATENDED,IV ACCESS TO SAMAN #20G WITH NS AT 75 ML/HR. SAFETY MEASURES IN PLACE: CALL LIGHT WITHIN REACH, SIDE RAILS UP X 2, BED LOCKED IN LOWEST POSITION. WILL ENDORSED TO NEXT SHIFT.
--- NOTE | 2022-03-23 06:47 | NUR ---
rn note; patient refused to check BS,explained the benefits x3.
[2022-03-23] MEDS: BLOOD SUGAR DIAGNOSTIC 1 EACH STRIP IN SCH ×4 (06:48→21:35)
--- NOTE | 2022-03-23 07:46 | NUR ---
RN OPENING NOTES: RECEIVED PT IN BED ASLEEP, EASILY ROUSED, A/OX4, AND ABLE TO MAKE NEEDS KNOWN.PT ON ROOM AIR, TOLERATING WELL, NO SOB/DISTRESS NOTED. DENIES PAIN/DISCOMFORT AT THIS TIME. IV ACCESS AT RIGHT AC #20; PATENT AND INTACT SL. SAFETY MEASURES IN PLACE WITH BED IN LOWEST LOCKED POSITION, SIDE RAILS UP X 2, CALL LIGHT AND TABLE WITHIN REACH, WILL CONTINUE WITH PLAN OF CARE DURING SHIFT.
[2022-03-23 08:00] VITALS: BP 156/99
[2022-03-23] MEDS: METFORMIN 850 MG TABLET PO SCH ×3 (08:00→17:47)
[2022-03-23] MEDS: risperiDONE 1 MG TABLET PO SCH ×2 (08:37→17:00)
[2022-03-23] MEDS: DIVALPROEX SODIUM 250 MG TABLET.DR PO SCH ×2 (08:37→20:23)
[2022-03-23] MEDS: LITHIUM CARBONATE (300 MG CAP) 300 MG CAPSULE PO SCH ×2 (08:37→20:22)
[2022-03-23] MEDS: BENZTROPINE MESYLATE (1 MG) 1 MG TABLET PO SCH ×2 (08:37→17:00)
--- NOTE | 2022-03-23 08:37 | NUR ---
RN NOTES: PT REFUSED ALL 0900 MEDS, STATES SHE DOESN'T HAVE ANY CONDITION THAT NEEDS TO BE TREATED WITH MEDICATION. RN EXPLAINED USES OF EACH MEDS, AND INFORMED OF HER AM BP= 156/99. PT STATES " I KNOW, IT WILL GO DOWN, I DON'T WANT TO TAKE ANYTHING". MADE SENIOR DATA MODELER AWARE, WILL CONTINUE TO MONITOR PT.
[2022-03-23] MEDS: LISINOPRIL (20MG) 20 MG TABLET PO SCH (09:00)
--- NOTE | 2022-03-23 09:19 | NUR ---
LUIS EDUARDO NOTES: BP RETAKEN BY RN, NOW AT 125/75, PT REFUSED LISINOPRIL. PT REFUSED AM LAB DRAW X2, PER LAB STAFF, WILL CANCEL ORDER. Addendum: 03/23/22 at 0921 by TREVON LA RN RETURNED MEDS PER HOSP [facility]
--- NOTE | 2022-03-23 11:25 | NUR ---
RN NOTES: PT'S BS= 210, PT REFUSED INSULIN, RN EDUCATED PT ON IMPORTANCE OF BS CONTROL, PT VERBALIZED UNDERSTANDING BUT STILL DECLINED MADE TRANSPORT RN AWARE, PT IS PENDING PSYCH CONSULT, REFERRAL MADE, FACE SHEET FAXED TO [employer]
[2022-03-23] MEDS: INSULIN REGULAR, HUMAN 100 UNIT/ML 3 ML VIAL SQ PRN ×2 (11:29→21:36)
--- NOTE | 2022-03-23 13:13 | NUR ---
RN NOTES: PT REFUSED METFORMIN, STATES " I DON'T TAKE THAT", EXPLAINED TO PT PURPOSE OF MED, PT VERBALIZED UNDERSTANDING BUT STILL DECLINED.
[2022-03-23 16:00] VITALS: BP 126/65
--- NOTE | 2022-03-23 18:41 | NUR ---
MS RN NOTES: PT REFUSED TO TAKE PM MEDS, AND INSULIN, COUNSELED PT ON IMPORTANCE OF MED ADHERENCE AND BS CONTROL, PT VERBALIZED UNDERSTANDING BUT STILL DECLINED, PT ASKED FOR ADDITIONAL SCOOP OF EGG SALAD INSTEAD, RN WILL ORDER FROM KITCHEN.
--- NOTE | 2022-03-23 18:58 | NUR ---
MS RN CLOSING NOTES: PT IN BED ASLEEP, EASILY ROUSED, A/OX4, AND ABLE TO MAKE NEEDS KNOWN.PT ON ROOM AIR, TOLERATING WELL, NO SOB/DISTRESS NOTED. DENIES PAIN/DISCOMFORT AT THIS TIME. IV ACCESS AT RIGHT AC #20; PATENT AND INTACT SL. PT REFUSED ALL MEDS DURING SHIFT, ALL NEEDS ATTENDED. SAFETY MEASURES IN PLACE WITH BED IN LOWEST LOCKED POSITION, SIDE RAILS UP X 2, CALL LIGHT AND TABLE WITHIN REACH, WILL ENDORSE TO PM SHIFT.
--- NOTE | 2022-03-23 19:25 | NUR ---
MS RN OPENING NOTE RECEIVED PATIENT FROM MORNING SHIFT NURSE; PATIENT IS ALERT AND ORIENTED X 4; ABLE TO CONVERSE AND AMBULATE; ON ROOM AIR BREATHING EVENLY, TOLERATING WELL AND NO RESPIRATORY DISTRESS NOTED; WITH IV ACCESS IN RAC G20 - SALINE LOCK, INTACT AND PATENT; SAFETY PRECAUTIONS IMPLEMENTED, BED IN LOWEST POSITION, LOCKED, SIDE RAILS UP X 2, CALL LIGHT WITHIN REACH; WILL CONTINUE TO MONITOR THROUGHOUT SHIFT
[2022-03-23 20:00] VITALS: BP 134/86
[2022-03-23] MEDS: ENOXAPARIN SODIUM 40 MG/0.4 ML DISP.SYRIN SQ SCH (20:00)
[2022-03-23] MEDS: MONTELUKAST SODIUM (10MG) 10 MG TABLET PO SCH (21:49)
--- NOTE | 2022-03-23 21:50 | NUR ---
MS RN NOTE PATIENT REFUSED ENOXAPARIN, DIVALPROEX, LITHIUM AND MONTELUKAST MEDICATIONS DESPITE EXPLAINING THE USE AND BENEFIT OF EACH MEDICATION. BLOOD SUGAR WAS 245 VIA ACCUCHECK, PATIENT AGREED TO AND WAS ABLE TO ADMINISTER 4 UNITS OF INSULIN. TOLERATED WELL.
--- NOTE | 2022-03-24 06:49 | NUR ---
MS RN CLOSING NOTE PATIENT IS ALERT AND ORIENTED X 4; ABLE TO CONVERSE AND AMBULATE; ON ROOM AIR BREATHING EVENLY, TOLERATING WELL AND NO RESPIRATORY DISTRESS NOTED; WITH IV ACCESS IN RAC G20 - SALINE LOCK, INTACT AND PATENT; PATIENT REFUSED ALL ORAL MEDICATIONS AND LOVENOX DEPSITE EXPLANATION OF BENEFITS; PATIENT'S NEEDS ATTENDED; SAFETY PRECAUTIONS IMPLEMENTED, BED IN LOWEST POSITION, LOCKED, SIDE RAILS UP X 2, CALL LIGHT WITHIN REACH; WILL ENDORSE TO AM NURSE FOR CONTINUITY OF CARE
[2022-03-24] MEDS: BLOOD SUGAR DIAGNOSTIC 1 EACH STRIP IN SCH ×4 (07:30→21:10)
--- NOTE | 2022-03-24 07:35 | NUR ---
ms rn received on bed, awake,alert,oriented x4,not in any form of distress, came for chf exacerbation, no sob /coughing noted. on room air w/ adequate saturation,denies pain at this time, will monitor patient.
[2022-03-24 08:00] VITALS: BP 153/87
[2022-03-24] MEDS: METFORMIN 850 MG TABLET PO SCH ×3 (08:00→17:36)
[2022-03-24] MEDS: LISINOPRIL (20MG) 20 MG TABLET PO SCH (09:00)
[2022-03-24] MEDS: LITHIUM CARBONATE (300 MG CAP) 300 MG CAPSULE PO SCH ×2 (09:00→21:00)
[2022-03-24] MEDS: BENZTROPINE MESYLATE (1 MG) 1 MG TABLET PO SCH ×2 (09:00→17:00)
[2022-03-24] MEDS: DIVALPROEX SODIUM 250 MG TABLET.DR PO SCH ×2 (09:00→21:00)
[2022-03-24] MEDS: risperiDONE 1 MG TABLET PO SCH ×2 (09:00→17:00)
--- NOTE | 2022-03-24 09:00 | NUR ---
ms eliana breakfast served,due meds given, refused atthis time, will give it later.
[2022-03-24] MEDS: INSULIN REGULAR, HUMAN 100 UNIT/ML 3 ML VIAL SQ PRN ×4 (11:58→21:31)
--- NOTE | 2022-03-24 15:30 | NUR ---
ms rn refused coverage for blood sugar,patient always refusing meds and blood sugar check.
[2022-03-24 16:00] VITALS: BP 150/92
--- NOTE | 2022-03-24 17:57 | NUR ---
ms rn on bed, no distress noted,all needs attended, will endorse to tool liaison.
[2022-03-24 20:00] VITALS: BP 145/95
[2022-03-24] MEDS: ENOXAPARIN SODIUM 40 MG/0.4 ML DISP.SYRIN SQ SCH (20:00)
[2022-03-24] MEDS: MONTELUKAST SODIUM (10MG) 10 MG TABLET PO SCH (21:28)
--- NOTE | 2022-03-24 21:31 | NUR ---
MEDICATION NON COMPLIANT Patient A/O x4. Refused due medication, education given, patient declined. Agreed on Blood glucose check 186mg/dl, patient refused insulin coverage. Non compliant with medication.
--- NOTE | 2022-03-25 06:13 | NUR ---
END OF SHIFT REPORT Patient in bed, Alert Oriented x3. Oxygen sat high 90's in room air. Right upper arm IV peripheral line intact. BLE edema. Independent with mobility, ambulated to the bathroom, observed no shortness of breath with exertion. Denies pain. Patient slept most of the night, withdrawn. Refusing medication, education given, indication possible side effect explained with length of time, patient declined all education. Plan for dc back to [facility]. Will endorse to oncoming RN.
[2022-03-25] MEDS: INSULIN REGULAR, HUMAN 100 UNIT/ML 3 ML VIAL SQ PRN ×2 (06:28→13:19)
[2022-03-25] MEDS: BLOOD SUGAR DIAGNOSTIC 1 EACH STRIP IN SCH ×2 (06:28→11:57)
--- NOTE | 2022-03-25 07:07 | NUR ---
ms rn received on bed, awake,alert,oriented x3,not in any form of distress, respirations even and unlabored, on room air w/ adequate saturation, denies pain at this time, anticipating discharge for today, will monitor patient.
[2022-03-25 08:00] VITALS: BP 155/94
[2022-03-25] MEDS: METFORMIN 850 MG TABLET PO SCH ×2 (08:00→11:57)
[2022-03-25 08:28] VITALS: BP 155/94
[2022-03-25] MEDS: LISINOPRIL (20MG) 20 MG TABLET PO SCH (08:28)
[2022-03-25] MEDS: LITHIUM CARBONATE (300 MG CAP) 300 MG CAPSULE PO SCH (08:28)
[2022-03-25] MEDS: BENZTROPINE MESYLATE (1 MG) 1 MG TABLET PO SCH (08:28)
[2022-03-25] MEDS: DIVALPROEX SODIUM 250 MG TABLET.DR PO SCH (08:28)
[2022-03-25] MEDS: risperiDONE 1 MG TABLET PO SCH (08:30)
--- NOTE | 2022-03-25 09:00 | NUR ---
ms rn breakfast served,due meds refused.
--- NOTE | 2022-03-25 12:30 | NUR ---
ms rn was seen by [place]/ damaris to be dc today back to [facility].
--- NOTE | 2022-03-25 14:33 | NUR ---
ms rn patient tarnsfer to snf, report given to Becky Mckeon,all needs attended.
== END 2022-03-25 14:45 | DRG 291 ==
LOC: ER 14:46 → MED 17:14
PROVIDERS: ADMIT Nurse Practitioner Acute Care; ATTEND Nurse Practitioner Acute Care
DX: I11.0 Hypertensive heart disease with heart failure (principal); I50.31 Acute diastolic (congestive) heart failure; D68.59 Other primary thrombophilia; E03.9 Hypothyroidism, unspecified; Z20.822 Contact with and (suspected) exposure to COVID-19; E11.9 Type 2 diabetes mellitus without complications; Z88.0 Allergy status to penicillin; Z79.4 Long term (current) use of insulin; Z79.899 Other long term (current) drug therapy; Z79.84 Long term (current) use of oral hypoglycemic drugs; J44.9 Chronic obstructive pulmonary disease, unspecified; F17.200 Nicotine dependence, unspecified, uncomplicated; D72.829 Elevated white blood cell count, unspecified; E66.01 Morbid (severe) obesity due to excess calories; Z91.14 Patient's other noncompliance with medication regimen; Z68.37 Body mass index [BMI] 37.0-37.9, adult; F25.0 Schizoaffective disorder, bipolar type
CPT/HCPCS: 36415; 71045-TC; 80048-TC; 80076-TC; 82962-TC; 83880; 84484-TC; 85025-TC; 85730-TC; 93307-TC; C9803; G0378; J1650; J1815

== ENCOUNTER 2023-04-11 14:34 | Inpatient (IN) | payer MEDICARE, OTHER ==
[~2023-04-11] VITALS: Ht 162.6 cm; Wt 82.6 kg
[~2023-04-11 14:34] MED LIST changes: -CLON1TAB12 PO; -GLIP10TA11 PO; +GLUC1KIT IM; +INSU100V28 SQ; +LISI40TA13 PO; +MAG30ORA PO; +MONT10TA22 PO; +NITR0.4T48 SL; -PALI234D IM; -PIOG30TA10 PO; -QUET400T PO; +RISP0.2515 PO
[2023-04-11] MEDS: IV NS 0.9% 1,000 ML BAG IV ONE (15:37)
[2023-04-11 15:41] LABS: BASOPHILS % (AUTO) 0.4 % (0.0-2.0); EOSINOPHILS # (AUTO) 0.2 K/uL (0.0-0.7); EOSINOPHILS % (AUTO) 1.5 % (0.0-6.0); HEMATOCRIT 37 % (33-45); HEMOGLOBIN 12.6 g/dL (11.5-14.8); LYMPHOCYTES # (AUTO) 3.8 K/uL (0.8-4.8); LYMPHOCYTES % (AUTO) 29.9 % (20.0-44.0); MEAN CORPUSCULAR HEMOGLOBIN 29 PG (26.0-33.0); MEAN CORPUSCULAR HGB CONC 34 g/dl (31.0-36.0); MEAN CORPUSCULAR VOLUME 87 fL (82-100); MONOCYTES # (AUTO) 0.6 K/uL (0.1-1.30); NEUTROPHILS % (AUTO) 63.2 % (43.0-81.0); PLATELET COUNT (AUTO) 315 K/uL (150-450); RED CELL DISTRIBUTION WIDTH 13.6 % (11.5-15.0); WHITE BLOOD COUNT (AUTO) 12.7 K/uL (4.3-11.0)
[2023-04-11 15:58] LABS: ALBUMIN 3.4 g/dL (3.4-5.0); BILIRUBIN,DIRECT 0.1 mg/dL (0.0-0.2); BILIRUBIN,TOTAL 0.3 mg/dL (0.2-1.0); CALCIUM, SERUM 9.4 mg/dL (8.5-10.1); CREATININE 0.6 mg/dL (0.6-1.3); POTASSIUM 3.4 mmol/L (3.5-5.1); TOTAL PROTEIN, SERUM 6.9 g/dL (6.4-8.2)
[2023-04-11] MEDS ORDERED: RISP3TAB5 PO (16:50)
[2023-04-11] MEDS ORDERED: MULT-213 PO (16:50)
[2023-04-11 17:36] LABS: APPEARANCE,URINE CLEAR (CLEAR); BILIRUBIN,URINE NEGATIVE (NEGATIVE); BLOOD, URINE 2+ Ery/uL (NEGATIVE); COLOR,URINE YELLOW (YELLOW); KETONES,URINE NEGATIVE (NEGATIVE); LEUKOCYTE ESTERASE ,URINE TRACE (NEGATIVE); NITRITE, URINE NEGATIVE (NEGATIVE); PROTEIN,URINE NEGATIVE (NEGATIVE); UGLUCOSE NEGATIVE (NEGATIVE)
[2023-04-11 17:39] LABS: PREGNANCY TEST URINE QUAL NEGATIVE (NEGATIVE)
[2023-04-11] MEDS ORDERED: CEFTRIAXONE 1GM BAG (ER ONLY) 50 ML IV ONE (19:26)
[2023-04-11 19:28] LABS: ADD URINE CULTURE NO; BACTERIA,URINE 1+ /HPF (None Seen)
[2023-04-11] MEDS: CEFTRIAXONE 1GM BAG (ER ONLY) 1 GM/50 ML PIGGYBACK IV ONE (20:00)
[2023-04-11] MEDS ORDERED: MAGNESIUM HYDROXIDE 30 ML UDC PO PRN (20:30)
[2023-04-11] MEDS ORDERED: ACETAMINOPHEN 325 MG TABLET PO PRN (20:30)
[2023-04-11] MEDS ORDERED: hydrALAZINE HCL IV 20 MG VIAL IV PRN (20:30)
[2023-04-11] MEDS ORDERED: NITROGLYCERIN 0.4 MG/TAB BOTTLE SL PRN (20:30)
[2023-04-11] MEDS ORDERED: DEXTROSE 50%-WATER 50 ML DISP.SYRIN IV PRN (20:30)
[2023-04-11] MEDS ORDERED: ONDANSETRON HCL/PF 4 MG/2 ML VIAL IVP PRN (20:30)
[2023-04-11] MEDS ORDERED: MAG HYDROX/AL HYDROX/SIMETH 30 ML UDC PO PRN (20:30)
[2023-04-11] MEDS ORDERED: MORPHINE SULFATE INJ 2 MG/ML DISP.SYRIN IV PRN (20:30)
[2023-04-11 21:35] VITALS: BP 151/79; TEMP 98.2; O2SAT 98
[2023-04-11 21:45] VITALS: BP 131/79; TEMP 98.2; O2SAT 98
[2023-04-11] MEDS: MONTELUKAST SODIUM (10MG) 10 MG TABLET PO SCH (22:00)
[2023-04-11] MEDS: BLOOD SUGAR DIAGNOSTIC 1 EACH STRIP IN SCH (22:18)
[2023-04-11] MEDS: INSULIN REGULAR, HUMAN 100 UNIT/ML 3 ML VIAL SQ PRN (22:18)
[2023-04-11] MEDS: IV NS 0.9% 1,000 ML IV SCH (22:30)
[2023-04-11] MEDS: HEPARIN SODIUM, PORCINE 5000 UNITS/1 ML VIAL SQ SCH (22:49)
[2023-04-11] MEDS: POTASSIUM CHLORIDE 20 MEQ TAB.PRT.SR PO ONE (23:39)
[2023-04-12 06:55] LABS: BASOPHILS # (AUTO) 0.1 K/uL (0.0-0.2); BASOPHILS % (AUTO) 0.6 % (0.0-2.0); EOSINOPHILS # (AUTO) 0.2 K/uL (0.0-0.7); EOSINOPHILS % (AUTO) 2.2 % (0.0-6.0); HEMATOCRIT 35 % (33-45); HEMOGLOBIN 12.2 g/dL (11.5-14.8); LYMPHOCYTES # (AUTO) 2.9 K/uL (0.8-4.8); LYMPHOCYTES % (AUTO) 33.1 % (20.0-44.0); MEAN CORPUSCULAR HEMOGLOBIN 30 PG (26.0-33.0); MEAN CORPUSCULAR HGB CONC 35 g/dl (31.0-36.0); MEAN CORPUSCULAR VOLUME 87 fL (82-100); MONOCYTES # (AUTO) 0.4 K/uL (0.1-1.30); MONOCYTES % (AUTO) 4.5 % (2.0-12.0); NEUTROPHILS # (AUTO) 5.2 K/uL (1.8-8.9); NEUTROPHILS % (AUTO) 59.6 % (43.0-81.0); PLATELET COUNT (AUTO) 296 K/uL (150-450); RED BLOOD CELL COUNT(AUTO) 4.04 MIL/uL (4.0-5.2); RED CELL DISTRIBUTION WIDTH 13.5 % (11.5-15.0); WHITE BLOOD COUNT (AUTO) 8.8 K/uL (4.3-11.0)
[2023-04-12 07:00] VITALS: BP 126/71; TEMP 97.5; O2SAT 93
[2023-04-12 07:26] LABS: ALBUMIN 3.2 g/dL (3.4-5.0); BILIRUBIN,TOTAL 0.3 mg/dL (0.2-1.0); CALCIUM, SERUM 9.2 mg/dL (8.5-10.1); CREATININE 0.5 mg/dL (0.6-1.3); PHOSPHORUS 3.3 mg/dL (2.5-4.9); POTASSIUM 3.3 mmol/L (3.5-5.1); TOTAL PROTEIN, SERUM 6.3 g/dL (6.4-8.2)
[2023-04-12] MEDS: FUROSEMIDE 20 MG TABLET PO SCH (09:00)
[2023-04-12] MEDS: POLYETHYLENE GLYCOL 3350 17 GM POWD.PACK PO SCH (09:00)
[2023-04-12] MEDS: DIVALPROEX SODIUM 500 MG TABLET.DR PO SCH (09:00)
[2023-04-12] MEDS: MULTIVIT W/MINERALS 1 TAB TABLET PO SCH (09:00)
[2023-04-12] MEDS: BENZTROPINE MESYLATE (1 MG) 1 MG TABLET PO SCH (09:00)
[2023-04-12] MEDS: LITHIUM CARBONATE (300 MG CAP) 300 MG CAPSULE PO SCH (09:00)
[2023-04-12] MEDS: risperiDONE 1 MG TABLET PO SCH (09:00)
[2023-04-12] MEDS: LISINOPRIL (20MG) 20 MG TABLET PO SCH (09:00)
[2023-04-12] MEDS: DOCUSATE SODIUM 100 MG CAPSULE PO SCH (09:00)
[2023-04-12] MEDS: CEFTRIAXONE 1 G in IV D5W 50 ML IV SCH (09:00)
[2023-04-12] MEDS: POTASSIUM CHLORIDE 20 MEQ TAB.PRT.SR PO SCH (10:30)
[2023-04-12 16:00] VITALS: BP 127/89; TEMP 98.8; O2SAT 97
[2023-04-12 20:00] VITALS: BP 126/79; TEMP 98.1; O2SAT 96
[2023-04-13 06:57] LABS: BASOPHILS % (AUTO) 0.5 % (0.0-2.0); EOSINOPHILS # (AUTO) 0.2 K/uL (0.0-0.7); EOSINOPHILS % (AUTO) 1.8 % (0.0-6.0); HEMATOCRIT 35 % (33-45); HEMOGLOBIN 12.2 g/dL (11.5-14.8); LYMPHOCYTES # (AUTO) 4.3 K/uL (0.8-4.8); LYMPHOCYTES % (AUTO) 42.1 % (20.0-44.0); MEAN CORPUSCULAR HEMOGLOBIN 31 PG (26.0-33.0); MEAN CORPUSCULAR HGB CONC 35 g/dl (31.0-36.0); MEAN CORPUSCULAR VOLUME 87 fL (82-100); MONOCYTES # (AUTO) 0.5 K/uL (0.1-1.30); MONOCYTES % (AUTO) 5.1 % (2.0-12.0); NEUTROPHILS # (AUTO) 5.1 K/uL (1.8-8.9); NEUTROPHILS % (AUTO) 50.5 % (43.0-81.0); PLATELET COUNT (AUTO) 299 K/uL (150-450); RED BLOOD CELL COUNT(AUTO) 4.02 MIL/uL (4.0-5.2); RED CELL DISTRIBUTION WIDTH 13.3 % (11.5-15.0); WHITE BLOOD COUNT (AUTO) 10.1 K/uL (4.3-11.0)
[2023-04-13 07:15] LABS: CALCIUM, SERUM 9.5 mg/dL (8.5-10.1); CREATININE 0.7 mg/dL (0.6-1.3); MAGNESIUM 1.8 mg/dL (1.8-2.4); PHOSPHORUS 3.7 mg/dL (2.5-4.9); POTASSIUM 3.3 mmol/L (3.5-5.1)
[2023-04-13 07:30] VITALS: BP 149/85; TEMP 98.6; O2SAT 98
[2023-04-13] MEDS: POTASSIUM CHLORIDE 20 MEQ TAB.PRT.SR PO SCH (10:30)
[2023-04-13 15:48] VITALS: BP 134/88; TEMP 97.7; O2SAT 97
[2023-04-13 20:00] VITALS: BP 143/84; TEMP 97.5; O2SAT 96
[2023-04-14 07:00] VITALS: BP 153/92; TEMP 97.9; O2SAT 96
[2023-04-14 07:30] VITALS: BP 129/78; TEMP 97.9; O2SAT 99
[2023-04-14 08:47] VITALS: BP 153/92
[2023-04-14] MEDS: GLUCERNA SHAKE 237 ML CAN PO SCH (09:00)
[2023-04-14] MEDS ORDERED: CEPH500C2 PO (13:24)
== END 2023-04-14 17:10 | DRG 641 ==
LOC: ER 14:40 → MED 20:45
PROVIDERS: ADMIT Internal Medicine; ATTEND Nurse Practitioner Acute Care
DX: R62.7 Adult failure to thrive (principal); N39.0 Urinary tract infection, site not specified; J44.9 Chronic obstructive pulmonary disease, unspecified; I10 Essential (primary) hypertension; F20.9 Schizophrenia, unspecified; F31.9 Bipolar disorder, unspecified; E87.6 Hypokalemia; E11.9 Type 2 diabetes mellitus without complications; E86.0 Dehydration; E03.9 Hypothyroidism, unspecified; Z88.0 Allergy status to penicillin; Z79.84 Long term (current) use of oral hypoglycemic drugs; Z79.899 Other long term (current) drug therapy; F17.200 Nicotine dependence, unspecified, uncomplicated; B96.89 Other specified bacterial agents as the cause of diseases classified elsewhere
CPT/HCPCS: 36415; 71045-TC; 80048-TC; 80053-TC; 80076-TC; 81001; 82962-TC; 83735-TC; 84100-TC; 84703-TC; 85025-TC; A4223; G0378; J0696; J1644; J1815; J7030; J7060